=== PATIENT | female | born 1935 ===

== ENCOUNTER 2017-03-17 08:51 | Emergency (ER) | payer MEDICARE ==
[2017-03-17 09:09] VITALS: TEMP 99.1; BMI 30.4
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
[2017-03-17 10:13] VITALS: BP 151/85; PULSE 98; RESP 20; O2SAT 99
--- NOTE | 2017-03-17 12:52 | RAD ---
HISTORY: cough COMPARISON: 04/25/2013. TECHNIQUE: Chest PA and lateral FINDINGS: LUNGS: Hyperinflation, manifestations of COPD. No active pulmonary disease. PLEURA: No significant pleural effusion identified. No pneumothorax apparent. CARDIOVASCULAR: Normal. OSSEOUS STRUCTURES: No significant abnormalities. VISUALIZED UPPER ABDOMEN: Normal. OTHER FINDINGS: None. IMPRESSION: No active disease. No significant interval change compared to the prior examination(s).
== END 2017-03-17 09:53 | disposition home or self-care (01) ==
LOC: ED 08:51
DX: J20.9 Acute bronchitis, unspecified (principal)